=== PATIENT | male | born 1940 | race Caucasian/White ===

== ENCOUNTER 2024-09-08 11:41 | Emergency (ER) | payer MEDICARE, OTHER, SELFPAY ==
[2024-09-08 11:54] VITALS: BMI 25.3
[2024-09-08 11:55] VITALS: BP 143/68
[2024-09-08 12:30] LABS: % Basophils 0.4 % (0-2); % Eosinophils 1.3 % (0-6); % Immature Granulocytes 0.3 % (0-0.5); % Lymphocytes 15.6 % (20.5-51.1); % Monocytes 9.5 % (1.7-9.3); % Neutrophils 72.9 % (42.2-75.2); Absolute Eosinophils 0.1 10^3/uL (0-0.7); Absolute Lymphocytes 1.1 10^3/uL (1.2-3.4); Absolute Monocytes 0.7 10^3/uL (0.1-0.6); Absolute Neutrophils 5.1 10^3/uL (1.4-6.5); Hematocrit 40.3 % (39.0-52.0); Hemoglobin 13.4 g/dL (13.0-18.0); Mean Corp Hgb Conc. 33.3 g/dL (33.0-37.0); Mean Corpuscular Hgb 30.9 pg (27.0-31.0); Mean Corpuscular Volume 93.1 fL (80.0-94.0); Mean Platelet Volume 10.5 fL (7.4-10.4); Nucleated Red Blood Cells % 0 % (-); Platelet Count 203 10^3/uL (130-400); Red Blood Cell Count 4.33 10^6/uL (4.70-6.10); Red Cell Dist. Width 13.2 % (11.5-14.5); White Blood Cell Count 6.9 10^3/uL (4.8-10.8)
[2024-09-08 12:48] LABS: ALT (SGPT) 15 U/L (0-50); AST (SGOT) 21 U/L (17-59); Albumin 3.6 g/dl (3.5-5.0); Alkaline Phosphatase 59 U/L (38-126); Blood Urea Nitrogen 18 mg/dl (9-20); Carbon Dioxide 30 mmol/L (22-30); Chloride 107 mmol/L (98-107); Estimated Creatinine Clearance 64 ml/min; Glucose 85 mg/dl (70-99); Potassium 4.4 mmol/L (3.5-5.1); Sodium 141 mmol/L (135-145); Total Bilirubin 0.7 mg/dl (0.2-1.3); Total Protein 6.8 g/dl (6.3-8.2); eGFR > 60.00
[2024-09-08 13:00] VITALS: BP 141/61
--- NOTE | 2024-09-08 13:43 | ED.GENMED ---
History of Present Illness
General
Chief Complaint: Weakness
Source: spouse
Exam Limitations: dementia
Time Seen by Provider: 09/08/24 13:33
History of Present Illness
History of Present Illness:
83-year-old male presents with some increased weakness today along with some increased confusion. Normally knows how to ambulate and facilitate movement around the house but seem to have some issues earlier. Has trouble getting up normally with
his Parkinson's but usually once he is up he is able to ambulate. Patient has no specific complaints. No other obvious complaints per the . No cough fever vomiting unusual pain etc.
Past History
Past History
ED Past Medical History: Asthma and Other (Parkinson's/dementia)
ED Past Surgical History: Tonsilectomy, Urological and Other (Cataract surgery)
Phy Exam
Physical Exam
Physical Exam:
GENERAL: Alert and oriented in no apparent distress
EYE: Orbits normal.
NECK: Supple, no thyroid palpable
ENT: Pharynx without erythema
CARDIAC: Regular rate and rhythm without any obvious murmurs.
LUNGS: Clear breath sounds,normal
ABDOMEN: Soft, without focal tenderness or distention
NEUROLOGICAL: Alert and oriented x 1, grossly non-focal. Masked facies. Sequela of Parkinson's flat affect
SKIN: Warm and dry, no rash or lesion, no discoloration, skin intact.
MUSCULOSKELETAL: No edema,no deformity.Good color
PSYCH: Flat affect no thyroid palpable
Course
Orders/Labs/Results
Orders:
Orders
09/08/24 12:11
Complete Blood Count/With Diff Urgent
Comprehensive Metabolic Panel Urgent
09/08/24 13:15
CT Head W/o Iv Contrast Urgent
Comment:
Reason For Exam: fall 1.5 weeks ago, increase weakness/confusion
09/08/24 13:42
Case Management Consult ONCE
Case Management Consult: Discharge Planning
Physical Therapy Consult [Pt Eval And Treat] Urgent
Activity Level: Ambulate
09/08/24 15:04
Urinalysis Reflex To Culture Urgent
Date Specimen was Collected: 09/08/24
Time Specimen was Collected: 13:44
Urine Microscopic Reflex Cult Urgent
09/08/24 15:19
Case Management Consult ONCE
Case Management Consult: VN/Home Care
Abnormal Lab Results
09/08/24 09/08/24
12:11 15:04
RBC 4.33 L 10^6/uL
(4.70-6.10)
MPV 10.5 H fL
(7.4-10.4)
Absolute Lymphs (auto) 1.1 L 10^3/uL
(1.2-3.4)
Absolute Monos (auto) 0.7 H 10^3/uL
(0.1-0.6)
Lymphocytes % 15.6 L %
(20.5-51.1)
Monocytes % 9.5 H %
(1.7-9.3)
Urine Ketones 1+ A
(Negative)
Urine Bacteria (Reflex) Few A
(Negative)
Urine Albumin (Reflex) 1+ A
(Neg - Trace)
09/08/24 12:11
09/08/24 12:11
Vital Signs
Initial and Last Documented VS:
Initial Vital Signs
Temp Pulse Resp BP Pulse Ox
97.5 F 57 18 143/68 100
09/08/24 11:55 09/08/24 11:55 09/08/24 11:55 09/08/24 11:55 09/08/24 11:55
Last Documented Vital Signs
Temp Pulse Resp BP Pulse Ox
97.5 F 56 16 141/61 100
09/08/24 11:55 09/08/24 13:30 09/08/24 13:30 09/08/24 13:00 09/08/24 13:00
MDM/Problems Addressed
Differential Diagnosis Includes:
Patient with sequela of Parkinson's clinically. Nontoxic. Alert to name which is like it is near his baseline. Nonfocal. Etiologies of mental status change weakness would include electrolyte issue which is normal, infectious issue which is
unlikely however urine pending. No respiratory issues. Central neurologic issue also unlikely. CT scan pending. Will get case management and physical therapy also involved.
*Pulse Oximetry
Patient hypoxic: no (100%)
*Critical Care Note
Total Time (30-74mins, 75-104mins- exclusive of procedures): Not Applicable
Update Note
Update Note:
Patient is remained stable and nontoxic. No serious etiology found for his brief mental status changes this morning and some transient increased weakness. He did well with case management and physical therapy. Apparently ambulated well.
Patient's states she would prefer to have him at home and feels she can handle this at home. No indication for admission. Discharged to follow-up
ED Attending Note
-
Portions of this chart may have been created with voice recognition software.� Occasional wrong word or��sound alike� substitutions may have occurred due to the inherent limitations of voice recognition software.
Discharge Plan
Departure
Patient Disposition: Home (Routine Discharge)
Date of Disposition: 09/08/24
Time of Disposition: 15:39
Patient with high blood pressure during this ER visit?: Yes
Discharge Problem:
Transient mental status change/weakness, History of Parkinson's disease, Chronic sinusitis
Instructions: Generalized Weakness (DC), BLOOD PRESSURE
Referrals:
Sushila Hoskins CRNP [Family Provider, General] - Follow up in 2-3 days
Activity Restrictions/Additional Instructions:
Follow-up closely with your primary physician
Return immediately with any concerning symptoms including worsening mental status, increased weakness, fever, difficulty handling activities of daily living at home or any other concerning symptoms
Interventions
Interventions:
*Risk Screen - Suicide Last Done: 09/08/24 11:55
*General Assessment Last Done: 09/08/24 11:55
*Neglect/Abuse Screening Last Done: 09/08/24 12:00
*ED- Fall Risk Assessment Last Done: 09/08/24 12:00
ED- Pulmonary Assessment Last Done: 09/08/24 12:02
ED- Neurological Assessment Last Done: 09/08/24 12:02
ED- Cardiac Assessment Last Done: 09/08/24 12:02
Discharge Date and Time
Print Language: YI
[2024-09-08 14:29] VITALS: BP 143/68; PULSE 59; O2SAT 99
[2024-09-08 15:15] LABS: Urine Albumin 1+ (Neg - Trace); Urine Bilirubin Negative (Negative); Urine Character Clear (Clear); Urine Color Yellow; Urine Glucose Negative (Negative); Urine Ketone 1+ (Negative); Urine Leukocyte Negative (Negative); Urine Nitrite Negative (Negative); Urine Occult Blood Negative (Negative); Urine Urobilinogen Negative (Neg - 1+)
--- NOTE | 2024-09-08 15:26 | CM ---
ED CM consult for dispo planning. Pt and spouse newer residents at [facility]. Pt typically independent with use of wheeled walker for longer distances. No needing walker throughout apt and spouse now assisting with dressing.
Pt had dietary aide teacher one day weekly and attends a private pay respite group twice a week.
Pt currently attending OP therapy, clinic unknown.
Pt with dementia and Parkinson's, alert and oriented to person and place. Spouse notes poor short term memory.
PCP: Sushila Hoskins
Pharmacy: [facility]
Dispo: SNF recs by PT, spouse declining SNF at this time, she observed therapy session and feels she can handle pt at home, VN discussed, [facility] to [facility] per her request.
Spouse has made arrangements for friend to transport them home
[2024-09-08 15:29] LABS: Urine Bacteria Few (Negative); Urine Mucus Few; Urine Red Blood Cell 0-2 /HPF (0-2); Urine Squamous Cell 0-2 /LPF (Few); Urine White Cell 0-2 /HPF (0-5)
== END 2024-09-08 16:40 | disposition home or self-care (01) ==
LOC: EMR 11:41
PROVIDERS: Emergency Medicine; EMERGENCY PHYSICIAN Emergency Medicine; FAMILY PHYSICIAN Nurse Practitioner
DX: J32.9 Chronic sinusitis, unspecified (principal); G20.A1 Parkinson's disease without dyskinesia, without mention of fluctuations; F02.80 Dementia in other diseases classified elsewhere, unspecified severity, without behavioral disturbance, psychotic disturbance, mood disturbance, and anxiety; R41.82 Altered mental status, unspecified; R53.1 Weakness; R03.0 Elevated blood-pressure reading, without diagnosis of hypertension
CPT/HCPCS: 99285; 70450; 80053; 81003; 81015; 85025

== ENCOUNTER 2024-09-09 12:55 | Emergency (ER) | payer MEDICARE, OTHER, SELFPAY ==
[2024-09-09 13:12] VITALS: BP 155/66
[2024-09-09 13:13] VITALS: BP 155/66
[2024-09-09 13:24] VITALS: BMI 25.1
--- NOTE | 2024-09-09 13:29 | ED.GENMED ---
History of Present Illness
General
Chief Complaint: Change in Mental Status
Source: patient and spouse
Exam Limitations: dementia
Time Seen by Provider: 09/09/24 13:04
Nursing documentation reviewed up to this point in time: agreed with
History of Present Illness
History of Present Illness:
Patient is an 83-year-old male with history of dementia, Parkinson's who presents to the emergency department via EMS after unwitnessed fall last night. History taking somewhat limited with patient's history of dementia. I did speak with patient's
who states that he sustained an unwitnessed fall at home last night. She believes that he may have missed the bed as he was trying to sit and slid down striking his head on the headboard. She was not in the room at the time although quickly
walked in and found him on the ground. He was fully conscious at that time.
Patient's got up very early for doctor's appointment and contacted the patient's primary care who recommended that he be seen in the emergency department to rule out traumatic intracranial injuries. She called 911 from her doctors appointment
and had them transported here.
Patient himself has no current complaints. Patient's does state that he seems to be at his baseline mental status after the fall and this morning.
Patient is not on any blood thinners
Past History
Past History
ED Past Medical History: Asthma and Other (Parkinson's/dementia)
ED Past Surgical History: Tonsilectomy, Urological and Other (Cataract surgery)
Review of Systems
Review of Systems
Allergies reviewed?: Yes
All Other Systems: ROS reviewed and negative except as documented in HPI and ROS
Phy Exam
Physical Exam
Physical Exam:
GENERAL: No acute distress
HEENT: atraumatic, extraocular muscles intact, no signs of entrapment, dentition intact, no other obvious trauma
NECK: no midline tenderness, normal range of motion, no other obvious trauma
BACK: no midline tenderness, no other obvious trauma
CHEST: no tenderness, no flail segment, no subcutaneous emphysema, no other obvious trauma
LUNGS: clear to auscultation bilaterally
CARDIOVASCULAR: regular rate and rhythm
ABDOMEN: soft, non-tender, no masses, no other obvious trauma
PELVIS: stable, no obvious injury
EXTREMITIES: moving all extremities, distal pulses intact, no other obvious trauma
NEUROLOGIC: awake, alert x [address], not time, no focal deficits
Course
Orders/Labs/Results
Orders:
Orders
09/09/24 13:26
[address] Spine wo Contrast CT [CT Cervical Spine W/o Iv Contr] Urgent
Comment:
Reason For Exam: unwitnessed fall
09/09/24 13:27
CT Head W/o Iv Contrast Urgent
Comment:
Reason For Exam: unwitnessed fall
Vital Signs
Initial and Last Documented VS:
Initial Vital Signs
Pulse Resp BP Pulse Ox
54 8 155/66 100
09/09/24 13:12 09/09/24 13:12 09/09/24 13:12 09/09/24 13:12
Last Documented Vital Signs
Temp Pulse Resp BP Pulse Ox
98.3 F 52 11 155/66 100
09/09/24 13:13 09/09/24 13:15 09/09/24 13:15 09/09/24 13:13 09/09/24 13:15
MDM/Problems Addressed
Differential Diagnosis Includes:
Not limited to: Contusion, concussion, intracranial hemorrhage, progression of disease, etc.
MDM/Problems Addressed:
83 y.o old male presenting via EMS after unwitnessed fall last night with possible head strike. No current complaints, obvious injuries or notable change in mental status. Vitals stable. Patient arrives A&O x 2 which is his baseline. He has no focal
neuro deficits on exam nor any obvious signs of head or neck trauma. No signs of extremity injuries or chest/abdominal trauma. After speaking with patients - suspect fall likely mechanical in nature secondary to parkinsons and unsteady gait.
Will obtain CT imaging of head/cervical spine. Reviewed labwork/UA obtained yesterday while in emergency department without acute abnormalities - do not feel repeat labs/UA indicated today. Will consult case management for discharge planning given
concern for frequent falls.
Update: CT head/cervical spine without evidence of acute traumatic injuries. Case management had lengthy discussion with patient and regarding discharge planning, SNF placement, etc. Patients adamant that she will be taking him home with
her. She feels that he is currently safe at home although will consider placement in future. Patient has been set up with at home nursing care who will have first visit on . Given no traumatic injuries identified and patient remains at
baseline mental status with no current complaints - feel stable for discharge home w/ strict return precautions.
Chronic conditions affecting care:
Dementia, Parkinson's
Acute Exacerbation and/or Progression of Chronic Illness:
N/A
*Radiology
Radiology exam reviewed: preliminary read by ED provider and radiology read reviewed
*Pulse Oximetry
Patient hypoxic: no (100% on room air)
*EKG
Interpreted by ED Provider?: NA
*Head Doffer Interpretation
Rate: Head Doffer- N/A
*Critical Care Note
Total Time (30-74mins, 75-104mins- exclusive of procedures): Not Applicable
ED Attending Note
-
Portions of this chart may have been created with voice recognition software.� Occasional wrong word or��sound alike� substitutions may have occurred due to the inherent limitations of voice recognition software.
Discharge Plan
Departure
Patient Disposition: Home (Routine Discharge)
Date of Disposition: 09/09/24
Time of Disposition: 16:17
Patient with high blood pressure during this ER visit?: Yes
Covid-19: Not Applicable
Discharge Problem:
Unwitnessed fall
Instructions: Preventing falls - ED discharge instructions, BLOOD PRESSURE
Prescriptions:
No Action
quetiapine 25 mg Tablet
12.5 - 25 mg PO HS
carbidopa-levodopa 25-100 mg tablet extended release
1 tab PO TID
donepezil 10 mg Tablet
10 mg PO DAILY
clonazepam 0.5 mg Tablet
0.25 - 0.5 mg PO HS
omeprazole 20 mg capsule,delayed release(DR/EC)
20 mg PO DAILY
azelastine 137 mcg (0.1 %) [place],Non-Aerosol
0 spray INTRANASAL BID
ipratropium bromide 42 mcg (0.06 %) [place],Non-Aerosol
0 spray INTRANASAL QID
finasteride 5 mg Tablet
5 mg PO DAILY
budesonide-formoterol [Breyna] 160-4.5 mcg/actuation Hfa Aerosol Inhaler
2 puff INHALATION R BID
Referrals:
UNKNOWN,NO INTERVIEW [Family Provider]
Activity Restrictions/Additional Instructions:
RETURN TO THE EMERGENCY DEPARTMENT WITH ANY REPEAT FALLS OR HEAD STRIKE, CHANGES IN MENTAL STATUS, FEVERS, DIFFICULTIES AMBULATING, WORSENING OF CURRENT SYMPTOMS, OR ANY OTHER CONCERNS
- As discussed�your imaging of your head and cervical spine showed no acute traumatic injuries today.
-It is important that you stay well-hydrated. You should move around slowly to prevent further falls.
- Follow-up with primary care for further evaluation/management.
Monitor your symptoms closely and return to the emergency department with any acute worsening/new symptoms or any other safety concerns
Interventions
Interventions:
*Risk Screen - Suicide Last Done: 09/09/24 13:22
*General Assessment Last Done: 09/09/24 13:23
*Neglect/Abuse Screening Last Done: 09/09/24 13:22
*ED- Fall Risk Assessment Last Done: 09/09/24 13:32
*ED COVID-19 Vaccine History Last Done: 09/09/24 13:22
*Nursing Disposition Last Done: 09/09/24 16:55
ED- Pulmonary Assessment Last Done: 09/09/24 13:36
ED- Neurological Assessment Last Done: 09/09/24 13:33
ED- Cardiac Assessment Last Done: 09/09/24 13:36
Discharge Date and Time
Discharge Date/Time: 09/09/24 16:55
Print Language: ALBANIAN
--- NOTE | 2024-09-09 14:42 | PHANOTE ---
09/09/2024, pt. obtunded; attempted to call spouse but was unsuccessful.
--- NOTE | 2024-09-09 15:28 | CM ---
CM met with pt's at bedside. Pt was seen in ED yesterday, [facility] arranged but have not started care yet.
SNF recs yesterday which pt's declined, continues to decline SNF placement today.
Spoke to Ebonie at [facility], they would have bed tomorrow. Private pay cost would be $545.00 a day. Could also offer 7 day respite stay with PT, also $545.00 a day.
We encouraged immediate increase in private duty HOSPITAL ACCOUNT MANAGER. We also encouraged her consider starting the LTC process.
We provided her [facility] contact information, [place] [phone]. Also provided her with Admissions Office number to discuss Memory Care, [place], .
Informed her [facility] will start services on 09/11.
ED KIRBY Lindsey updated.
== END 2024-09-09 16:55 | disposition home or self-care (01) ==
LOC: EMR 12:55
PROVIDERS: EMERGENCY PHYSICIAN Emergency Medicine
DX: S09.90XA Unspecified injury of head, initial encounter (principal); W19.XXXA Unspecified fall, initial encounter; F02.80 Dementia in other diseases classified elsewhere, unspecified severity, without behavioral disturbance, psychotic disturbance, mood disturbance, and anxiety; G20.A1 Parkinson's disease without dyskinesia, without mention of fluctuations; R03.0 Elevated blood-pressure reading, without diagnosis of hypertension
CPT/HCPCS: 99285; 70450; 72125

== ENCOUNTER 2024-10-12 12:32 | Inpatient (IN) | payer MEDICARE, OTHER, SELFPAY ==
[2024-10-10] VITALS (12 sets, daily range): BP systolic 130–158; BP diastolic 53–69; BMI 25.0
[2024-10-10 14:08] LABS: Hematocrit 45.2 % (39.0-52.0); Hemoglobin 15.2 g/dL (13.0-18.0); Mean Corp Hgb Conc. 33.6 g/dL (33.0-37.0); Mean Corpuscular Volume 91.7 fL (80.0-94.0); Nucleated Red Blood Cells % 0 % (-); Platelet Count 193 10^3/uL (130-400); Red Cell Dist. Width 13.3 % (11.5-14.5)
[2024-10-10] MEDS: NSS 500 IV (15:01)
--- NOTE | 2024-10-10 15:08 | ED.GENMED ---
History of Present Illness
General
Chief Complaint: Change in Mental Status
Source: spouse
Exam Limitations: altered mental status and dementia
Time Seen by Provider: 10/10/24 14:08
Nursing documentation reviewed up to this point in time: agreed with
History of Present Illness
History of Present Illness:
Patient is an 83-year-old male with history of dementia, Parkinson's who presents to the emergency department with due to change in mental status. Patients states that over the past few days he has seemed generally weak. She states that
he seems much quieter and is not eating/drinking as he typically does. Patient's states that he recently began using a walker to assist with ambulation although over the past few days he has had increased difficulty even with this. Patient is
not expressing any pain. There is no history of recent fevers
There is no history of recent trauma or falls. Patient is not on any blood thinners.
Patient lives in independent living with his .
Past History
Past History
ED Past Medical History: Asthma and Other (Parkinson's/dementia)
ED Past Surgical History: Tonsilectomy, Urological and Other (Cataract surgery)
Review of Systems
Review of Systems
Allergies reviewed?: Yes
All Other Systems: ROS reviewed and negative except as documented in HPI and ROS
Phy Exam
Physical Exam
Physical Exam:
Vitals: Patient's vital signs are stable
General: Patient is chronically ill-appearing.
Skin: Warm and dry, no rashes or lesions
Head: Normocephalic, atraumatic
Eyes: Sclera nonicteric. No nystagmus.
Throat: Protecting airway
Neck: Normal ROM, no cervical spine tenderness, no meningismus
Cardiac: Regular rate and rhythm, no murmurs.
Pulm: Normal respiratory effort, no wheezes, rales, rhonchi heard on exam
.
Abdomen: Abdomen soft and nontender
Extremities: No evidence of cyanosis or edema
Neuro: Alert. Responds to verbal stimuli. Remainder of neurologic exam limited secondary to dementia.
Psychiatric: Normal affect.
Course
Orders/Labs/Results
Orders:
Orders
10/10/24 Breakfast
Regular
At Your Request: Non-Participating
10/10/24 13:58
Complete Blood Count/With Diff Urgent
Lactic Acid Urgent
10/10/24 14:51
Straight cath- Treatment ONCE
0.9% Sodium Chloride 500 ml [Nss] 500 ml IV BOLUS
10/10/24 14:52
CT Head W/o Iv Contrast Urgent
Comment:
Reason For Exam: AMS
10/10/24 15:33
Comprehensive Metabolic Panel Urgent
10/10/24 15:43
Urinalysis Reflex To Culture Urgent
Date Specimen was Collected: 10/10/24
Time Specimen was Collected: 14:53
Urine Microscopic Reflex Cult Urgent
10/10/24 17:10
CR Chest - 2 Views Urgent
Comment:
Reason For Exam: cough
10/10/24 18:44
Electrocardiogram (*1) Urgent
Reason for Study: Fatigue / Weakness
EKG- Treatment ONCE
10/10/24 19:00
COVID-19 Antigen Urgent
Source: Nasal Swab
Influenza A+B Rapid Molecular Urgent
JUAN MIGUEL Source: Nasal Swab
Specimen Description:
10/10/24 21:00
Admit/Transfer Patient As Directed
Co-Sign Provider:
Level of Care: Observation services
Assign to:: Telemetry
Physician / Group: vincent
Diagnosis: metabolic encephalopathy
Reason for Telemetry: Arrhythmia
Date to Stop Telemetry: 10/13/24
Time to Stop Telemetry: 11:00
Reason for Hospitalization: metabolic encephalopathy
ambulatory dysfunction
PRN Pain Medication Management As Directed
May give lesser potent ordered pain med per pt: Yes
preference::
Protocol:: Medication orders for pain may be administered in a
manner that supports deferring to patient preference
when the pt is:
- Requesting an ordered lesser potent pain medication.
Least to most potent pain medications are defined
as: acetaminophen < NSAID < tramadol < opioids
(morphine, oxycodone, hydromorphone).
- Requesting a lesser dose of the same medication IF
ORDERED.
- Requesting a less intrusive route of administration
if both routes are prescribed by the provider (PO <
IV).
10/10/24 21:01
Code Status As Directed
Resuscitation Status: Full Code
10/10/24 22:00
Dextrose 5%/Lactringers 1000ML [D5lr] 1,000 ml IV 80 mls/hr
10/10/24 22:38
Acetaminophen [Tylenol/Feverall] 650 mg RECTAL Q4HPRN PRN
Albuterol [ProAIR HFA INHALER] 2 puff INH R QID
Bisacodyl [Dulcolax] 10 mg RECTAL [id number] PRN
Carbidopa/Levodopa Cr [Sinemet Cr 25-100 (Extended Release)] 1 tablet PO TID
Docusate W/Senna [Senokot-S] 1 tablet PO BIDPRN PRN
Polyethylene Glycol Powder [Miralax] 17 grams PO DAILYPRN PRN
10/10/24 22:38
Case Management Consult ONCE
Case Management Consult: Discharge Planning
Activity As Directed
Activity Level: As Tolerated
Vital Signs As Directed
Frequency: Per unit guidelines
Ot Eval And Treat Routine
Pt Eval And Treat Routine
Activity Level: As Tolerated
DX Deep Vein Thrombosis Video Routine
10/11/24 08:00
Budesonide/Formoterol 160/4.5 [Symbicort 160/4.5 Mcg Inhaler] 2 puff INH R BID
Cetirizine HCl [Zyrtec] 10 mg PO DAILY
Duloxetine Delayed Release [Cymbalta Delayed Release] 20 mg PO DAILY
FLUTICASONE PROPIONATE 110 mcg [Flovent 110 Mcg Inhaler] 1 puff INH R BID
Finasteride [Proscar] 5 mg PO DAILY
Pantoprazole [Protonix] 40 mg PO DAILY
10/11/24 18:00
Enoxaparin Sodium [Lovenox] 40 mg SC QPM
10/13/24 11:00
DC Protocol for Telemetry ONCE
Abnormal Lab Results
10/10/24 10/10/24 10/10/24
13:58 15:33 15:43
MPV 10.5 H fL
(7.4-10.4)
Abs Immat Gran (auto) 0.1 H 10^3/uL
(0-0.05)
Absolute Neuts (auto) 7.9 H 10^3/uL
(1.4-6.5)
Absolute Monos (auto) 1.3 H 10^3/uL
(0.1-0.6)
Lymphocytes % 13.3 L %
(20.5-51.1)
Monocytes % 12.2 H %
(1.7-9.3)
Carbon Dioxide 31 H mmol/L
(22-30)
BUN 21 H mg/dl
(9-20)
Glucose 130 H mg/dl
(70-99)
Total Bilirubin 1.5 H mg/dl
(0.2-1.3)
Urine Ketones 1+ A
(Negative)
Ur Occult Blood Reflex 1+ A
(Negative)
Urine Bacteria (Reflex) Few A
(Negative)
Urine Glucose 1+ A
(Negative)
Urine Albumin (Reflex) 2+ A
(Neg - Trace)
10/10/24 13:58
10/10/24 15:33
Vital Signs
Initial and Last Documented VS:
Initial Vital Signs
Temp Pulse Resp BP Pulse Ox
99.9 F 56 20 156/66 97
10/10/24 13:46 10/10/24 13:46 10/10/24 13:46 10/10/24 13:46 10/10/24 13:46
Last Documented Vital Signs
Temp Pulse Resp BP Pulse Ox
98.0 F 60 17 185/99 100
10/11/24 08:48 10/11/24 08:48 10/11/24 08:48 10/11/24 08:48 10/11/24 08:48
MDM/Problems Addressed
Differential Diagnosis Includes:
Not limited to: Progression of disease, acute dehydration, viral illness, electrolyte abnormality, UTI, intracranial hemorrhage, etc.
MDM/Problems Addressed:
83-year-old male presenting with generalized weakness and change in mental status over the past 2 days reported by . No known fevers or other infectious symptoms. No recent trauma or head injury. Vitals and physical exam as above.
Patient alert and moving all extremities. He responds to verbal stimuli however otherwise neurologic exam very limited. Benign abdomen. Cardio/pulmonary assessment unremarkable. Differential includes progression of Parkinson/dementia, acute
dehydration, infection, etc.
ED plan: Check labs, UA, head CT and chest x-ray.
Update: Labs without clinically significant abnormalities. UA without evidence of infection. Head CT without acute findings. Chest x-ray shows no evidence of pneumonia.
Ultimately�workup in ED negative. Unclear how much of an acute change this is from patient's baseline. However�patient lives in independent living with his , who is having difficulty caring for him given weakness and ambulatory dysfunction.
Patient will require admission for further workup and possible PT/CM for placement for increased care. Patient excepted to hospitalist service in stable condition. Discussed plan with who is aware.
Chronic conditions affecting care:
Dementia, Parkinson's
Acute Exacerbation and/or Progression of Chronic Illness:
N/A
*Radiology
Radiology exam reviewed: preliminary read by ED provider (Head CT reviewed by me-no acute abnormality) and radiology read reviewed
*Pulse Oximetry
SaO2: 97
Oxygen Mode of Delivery: Room air
Patient hypoxic: no
*EKG
Interpreted by ED Provider?: Yes
EKG Intrepretation Date: 10/10/24
Interpretation: abnormal
Comparison EKG: no comparison EKG present
Heart Rate: 54
Rate: bradycardiac
Rhythm: sinus
[place]: normal axis
Interval: normal QT interval
Ischemia: non-specific ST changes
*Motorcycle Builder Interpretation
Rate: bradycardiac
Interpretation: abnormal
Heart Rate: 54
Rhythm: sinus
*Critical Care Note
Total Time (30-74mins, 75-104mins- exclusive of procedures): Not Applicable
Patient Management
Discussion with other providers: Hospitalist
Escalation/DeEscalation of care consider admission/obs:
Admitted for generalized weakness, ambulatory dysfunction for further evaluation and possible PT/CM consult for placement
ED Attending Note
-
Portions of this chart may have been created with voice recognition software.� Occasional wrong word or��sound alike� substitutions may have occurred due to the inherent limitations of voice recognition software.
Discharge Plan
Departure
Patient Disposition: Admit
Date of Disposition: 10/10/24
Time of Disposition: 19:36
Presentation/result/management discussed w/ accepting MD/DO: Hospitalist
Discharge Problem:
Change in mental status, Ambulatory dysfunction
Interventions
Interventions:
*Risk Screen - Suicide Last Done: 10/10/24 22:45
*General Assessment Last Done: 10/10/24 13:51
*Neglect/Abuse Screening Last Done: 10/10/24 13:46
*ED- Fall Risk Assessment Last Done: 10/10/24 13:51
*ED COVID-19 Vaccine History Last Done: 10/10/24 22:45
*Nursing Disposition Last Done: 10/10/24 22:27
ED- Pulmonary Assessment Last Done: 10/10/24 14:34
ED- Neurological Assessment Last Done: 10/10/24 14:34
ED- Cardiac Assessment Last Done: 10/10/24 14:34
Discharge Date and Time
Discharge Date/Time: 10/10/24 22:27
[2024-10-10 16:00] LABS: ALT (SGPT) 27 U/L (0-50); AST (SGOT) 33 U/L (17-59); Albumin 3.9 g/dl (3.5-5.0); Alkaline Phosphatase 62 U/L (38-126); Blood Urea Nitrogen 21 mg/dl (9-20); Calcium 9.1 mg/dl (8.4-10.2); Carbon Dioxide 31 mmol/L (22-30); Chloride 106 mmol/L (98-107); Glucose 130 mg/dl (70-99); Potassium 4.0 mmol/L (3.5-5.1); Sodium 141 mmol/L (135-145); Total Protein 7.4 g/dl (6.3-8.2); eGFR > 60.00
[2024-10-10 16:00] LABS: Urine Character Clear (Clear)
[2024-10-10 16:20] LABS: Urine Red Blood Cell 0-2 /HPF (0-2)
[2024-10-10 19:22] LABS: COVID-19 Antigen Negative (Negative)
--- NOTE | 2024-10-10 20:38 | HPS.HSE ---
Family Physician
-
Family Physician: INTERVIEWE UNKNOWN - PT NOT
Chief Complaint
-
confusion
History of Present Illness
-year-old male with history of dementia, Parkinson's who presents to the emergency department with due to change in mental status. Patients states that over the past few days he has seemed generally weak and is utilizing a walker for
ambulation. She states that he seems much quieter and is not eating/drinking as he typically does. ROS is limited due to mental status.
admitting for further managment.
Medical History
Past Medical History
Past Medical History: Reports Other
Additional Past Medical History:
Parkinson disease
dementia
GERD
BPH
anxiety
skin cancer
reactive airway disease
Past Surgical History: Reports None
Social History
Unable to obtain full social history at this time due to: Dementia
Family History
Family History: Not pertinent
Allergies / Home Medications
Allergies reflects when Allergies were last updated in [facility].
Home Medications with original date entered in [facility]
Allergy/Medication List:
Allergies
Allergy/AdvReac Type Severity Reaction Status Date / Time
levofloxacin Allergy Unknown Unknown Verified 10/10/24 13:46
memantine Allergy Unknown Unknown Verified 10/10/24 13:46
Home Medications
azelastine 137 mcg (0.1 %) nasal spray 1 spray intranasal BID 09/09/24
budesonide-formoterol HFA 160 mcg-4.5 mcg/actuation aerosol inhaler (Breyna) 2 puff inhalation R BID 09/09/24
carbidopa ER 25 mg-levodopa 100 mg tablet,extended release 1 tab PO TID 09/09/24
donepezil 10 mg tablet 10 mg PO DAILY 09/09/24
finasteride 5 mg tablet 5 mg PO DAILY 09/09/24
omeprazole 20 mg capsule,delayed release 20 mg PO DAILY 09/09/24
albuterol sulfate 90 mcg/actuation aerosol inhaler 2 puff inhalation QID 10/10/24
cetirizine 10 mg tablet 10 mg PO DAILY 10/10/24
ciclesonide 80 mcg/actuation aerosol inhaler (Alvesco) 2 puff inhalation BID 10/10/24
duloxetine 20 mg capsule,delayed release 20 mg PO DAILY 10/10/24
triamcinolone acetonide 55 mcg nasal spray aerosol (Nasacort Allergy) 1 spray intranasal DAILY 10/10/24
Review of Systems
-
Unable to obtain full review of systems at this time due to: Dementia
Physical Exam
Vital Signs
Vital Signs
Temp Pulse Resp BP Pulse Ox
99.9 F 56 14 136/64 99
10/10/24 13:46 10/10/24 20:18 10/10/24 19:15 10/10/24 19:06 10/10/24 19:45
Physical Exam
General: Well Developed, Well Nourished and No Apparent Distress
HEENT: NormoCephalic, Moist mucous membranes and Atraumatic
Respiratory: Clear
Cardiac: S1/S2 and Regular Rhythm; No Murmur or Rub
GI: Soft, Non Tender, Non Distended and Normal Bowel Sounds; No Organomegaly
Rectal: Deferred by Provider
Musculoskeletal: No Clubbing, No Cyanosis and No Edema
Skin: No Rash
Neuro: Nonfocal/grossly intact
Psych: Confused
Laboratory Results
-
10/10/24 13:58
10/10/24 15:33
Laboratory Results
Lactic Acid 1.9 mmol/L (0.7-2.0) 10/10/24 13:58
Total Bilirubin 1.5 mg/dl (0.2-1.3) H 10/10/24 15:33
AST 33 U/L (17-59) 10/10/24 15:33
ALT 27 U/L (0-50) 10/10/24 15:33
Alkaline Phosphatase 62 U/L (38-126) 10/10/24 15:33
Data Reviewed
-
CT Scan: Report Reviewed by me
Lab Data: Labs Reviewed by me
Impression/Plan
-
# Ambulatory dysfunction/generalized weakness/encephalopathy likely progression of dementia/Parkinson disease
#hxt of Lewy dementia
- COVID-negative
- UA negative
- CT head with impression of No CT evidence for acute intracranial hemorrhage or transcortical infarct.
2. 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
3. SEVERE WHITE MATTER LEUKOARAIOSIS in the frontal lobes and moderate white matter leukoaraiosis in the parietal lobes.
4. Severe bilateral frontal sinusitis.
5. Severe hyperostosis of the paiz of the maxillary and sphenoid sinuses consistent with chronic sinusitis.
6. Moderate bilateral hyperostosis frontalis interna.
-chest x ray with No radiographic evidence for pneumonia or acute pulmonary edema. Mild to moderate elevation of the right hemidiaphragm. Chronic granulomatous disease infection in the left lung.
-PT/OT consulted
-CM consulted for dispo planning
- Aricept held due to bradycardia
- Carbidopa levodopa continue
- Duloxetine continued
# Bradycardia likely from aricept
- EKG with sinus bradycardia
- Heart rate in the 40s to 50s
- Continue to monitor patient in telemetry
# History of airway disease
- Nebs from home continued
# BPH
- Finasteride continued
# GERD
- PPI continued
# DVT prophylaxis
- Lovenox
# CODE STATUS
- Full code
--- NOTE | 2024-10-10 21:16 | W.PN.UPDATE ---
Update Note
Progress Note Update
Patient seen in conjunction with CERTIFIED SOL[employer]E FACILITY OPERATOR, agree with findings and physical. I concur with assessment and plan listed otherwise.
Briefly, this is a 83-year-old male with past medical history similar for Parkinson's disease, BPH, GERD, dementia with Lewy body, presenting to the emergency department with ambulatory dysfunction and generalized weakness that is worsening over the
last few days. Unclear if there is significant decline in mental status as spouse unable to describe baseline mental status clearly. Patient has no focal source of infection. Has been no fevers or chills. Has been no cough. Denies any trauma.
Denies falls. Denies any urinary symptoms. No sick contacts and no recent travel. No recent medication changes.
In the ED the patient, blood pressure was 136/60 with a pulse of 56 and was satting in 9% on room air. Temp was Tmax 99.9. ECG with sinus bradycardia at a rate of 54.
CT of the head shows no acute intracranial process, severe sinusitis noted.
CBC was completely unremarkable. Electrolytes was also unremarkable with normal BUN and creatinine. UA was negative.
Chest x-ray shows no acute infiltrates. COVID test was negative, influenza negative.
Patient appears to be having progressive functional decline seems to be evident the last few days without any focal cortical deficits, infection or trauma. Labs are completely unremarkable. CT of the head shows no acute intracranial process and
there was some evidence of sinusitis on the CT. Chest x-ray was clear. Patient is being referred for admission for of possible alteration in mental status and ambulatory dysfunction. Picture c/w progressive dementia. Per records, PMD already
broached hospice with family but spouse did not want to start yet
- admit to telemetry
- gentle hydration overnight
- PT evaluation
- case management consultation, possible hospice.
Sinus pablito - HD stable. No indication for acute intervention
- hold aricept for now
Continue other medications per home regimen
DVT PPX - lovneox sq
Code status - Full Code
--- NOTE | 2024-10-10 22:45 | PTCARENOTE ---
Pt arrived to room 418-02. Pt transferred from stretcher to bed. Pt AAO-self, pt minimally verbal, VSS. Pt oriented to room, call amaya placed within reach. Bed alarm in place.
[2024-10-10] MEDS: D5LR 1000 IV (23:07)
[2024-10-10] MEDS: SINEMET CR 25-100 (EXTENDED RELEASE) PO (23:45)
[2024-10-11 03:46] VITALS: BP 140/63
[2024-10-11] MEDS: SYMBICORT 160/4.5 MCG INHALER INH (08:00)
[2024-10-11 08:48] VITALS: BP 185/99
[2024-10-11] MEDS: PROSCAR 5 MG PO (09:02)
[2024-10-11] MEDS: CYMBALTA DELAYED RELEASE 20 MG PO (09:02)
[2024-10-11] MEDS: ZYRTEC 10 MG PO (09:02)
[2024-10-11] MEDS: PROTONIX 40 MG PO (09:02)
[2024-10-11] MEDS: SINEMET CR 25-100 (EXTENDED RELEASE) 1 TABLET PO ×2 (09:03→17:06)
--- NOTE | 2024-10-11 09:25 | W.PN.HOSP.TC ---
Today's Communication/Plan
-
see a/p
Assessment / Plan
Assessment / Plan
Physical Exam
General: no acute distress, appears comfortable at this time.
HEENT: NormoCephalic, Moist mucous membranes and Atraumatic Hard of hearing
Respiratory: Clear
Cardiac: S1/S2 and Regular Rhythm; No Murmur or Rub
GI: Soft, Non Tender, Non Distended and Normal Bowel Sounds; No Organomegaly
Musculoskeletal: No Clubbing, No Cyanosis and No Edema
Skin: No Rash
Neuro: Awake Alert Conversant
Psych: Calm
83M with history Lewy Body Dementia p/w due to concerns AMS progressive weakness ambulatory dysfunction past few days.
# Ambulatory dysfunction/generalized weakness/encephalopathy likely progression Lewy Body Dementia
- COVID-negative
- UA negative
- CT head with report No CT evidence for acute intracranial hemorrhage or transcortical infarct.
2. Moderate bilateral temporal lobe volume loss consistent with a chronic neurodegenerative disease (suggestive ALZHEIMER'S DEMENTIA).
3. SEVERE WHITE MATTER LEUKOARAIOSIS in the frontal lobes and moderate white matter leukoaraiosis in the parietal lobes.
4. Severe bilateral frontal sinusitis.
5. Severe hyperostosis of the paiz of the maxillary and sphenoid sinuses consistent with chronic sinusitis.
6. Moderate bilateral hyperostosis frontalis interna.
-chest x ray with No radiographic evidence for pneumonia or acute pulmonary edema. Mild to moderate elevation of the right hemidiaphragm. Chronic granulomatous disease infection in the left lung (discussed with Pulm, no further work up/treatment
required inpt, possible benefit outpt follow up).
-PT/OT consult appreciated SNF rehab
-CM consult appreciated
- Aricept held due to bradycardia
- Carbidopa levodopa continue
- Duloxetine continued
-PT/OT appreciated SNF rehab
-speech eval appreciated pureed diet
-cont IVF support pending improvement in oral intake
# Bradycardia possibly from aricept
- EKG with sinus bradycardia
- Heart rate in the 40s to 50s
- Continue to monitor patient in telemetry
# History reactive airway disease
- stable respiratory status on room air
- cont symbicort, prn albuterol
# BPH
- Finasteride continued
# GERD
- PPI continued
# DVT prophylaxis
- Lovenox
# CODE STATUS
- Full code
Discussed with patient and patient's Kristina
I spent a total of 50 minutes with the patient or on the floor. More than 50% of this time involved counseling and coordination of care.
Anticipated Discharge: 24 - 48 hours
Subjective/Interval History
-
Date of Service: October 11, 2024
No acute distress, sitting up comfortably in chair. Awake alert conversant. Limited conversation d/t hard of hearing. Kristina present during evaluation.
Objective Data
-
Vital Signs:
Vital Signs
Temp Pulse Resp BP Pulse Ox
98.0 F 60 17 185/99 100
10/11/24 08:48 10/11/24 08:48 10/11/24 08:48 10/11/24 08:48 10/11/24 08:48
[2024-10-11 11:06] VITALS: BMI 25.0
[2024-10-11] MEDS: D5LR 1000 IV (12:22)
[2024-10-11 15:00] VITALS: BP 144/75
--- NOTE | 2024-10-11 15:36 | CM ---
manager membership reviewed patient's chart and patient was admitted under OBS, JENKINS letter provided and signed by spouse, patient with dementia. Patient has a history of Parkinson's, patient lives with spouse and [address], is independent
with adl's and ambulating, recently patient has been using a walker, disease case manager spoke with spouse and she is interested in skilled placement, will need to review patient for possible WAIVER for skilled placement.
Pharmacy: [facility]
Plan; Await PT/OT evaluations.
--- NOTE | 2024-10-11 16:33 | PTOTSP ---
Speech Therapy Evaluation:
Pt with acute on chronic risk factors of dysphagia (Dementia, Parkinson's, GERD, altered mental status). Pt demonstrated mild oral impairments. No overt s/sx of aspiration across trials. Risk of developing aspiration related pulmonary complication
increased given poor oral hygiene, dependence for feeding/oral care (temporary), and hx of gastrointestinal disease. CXR without evidence for pneumonia, WBC WNL, and pt without dysphagia hx. Suspect diet advancement as mentation improves.
Recommend:
1. Continue puree and thin liquids
2. Medds crushed in puree
3. 1:1 assistance and supervision
4. Strict aspiration precautions, General reflux precautions
5. NURSING ADMINISTRATOR to follow to monitor tolerance of diet and assess candidacy for diet advancement
[2024-10-11] MEDS: LOVENOX 40 MG SC (17:58)
[2024-10-11] MEDS: SYMBICORT 160/4.5 MCG INHALER 2 PUFF INH (18:16)
[2024-10-11 19:54] VITALS: BP 147/70
[2024-10-11] MEDS: SINEMET CR 25-100 (EXTENDED RELEASE) PO ×2 (22:02→22:03)
[2024-10-11 23:30] VITALS: BP 146/64
[2024-10-12 03:35] VITALS: BP 102/72
[2024-10-12 06:19] LABS: Hematocrit 38.9 % (39.0-52.0); Hemoglobin 13.1 g/dL (13.0-18.0); Mean Corp Hgb Conc. 33.7 g/dL (33.0-37.0); Mean Corpuscular Volume 91.3 fL (80.0-94.0); Platelet Count 173 10^3/uL (130-400); Red Cell Dist. Width 13.2 % (11.5-14.5)
[2024-10-12 06:52] LABS: Blood Urea Nitrogen 23 mg/dl (9-20); Calcium 8.8 mg/dl (8.4-10.2); Carbon Dioxide 30 mmol/L (22-30); Chloride 107 mmol/L (98-107); Estimated Creatinine Clearance 83 ml/min; Glucose 109 mg/dl (70-99); Magnesium 2.1 mg/dl (1.6-2.3); Potassium 3.6 mmol/L (3.5-5.1); Sodium 140 mmol/L (135-145); eGFR > 60.00
[2024-10-12 07:00] VITALS: BP 120/74; BP 140/65; PULSE 54; PULSE 55
--- NOTE | 2024-10-12 07:24 | W.PN.HOSP.TC ---
Today's Communication/Plan
-
IVF support
PT/OT
Neuro eval
Ongoing goals of care discussion
Assessment / Plan
Assessment / Plan
Physical Exam
General: no acute distress, appears comfortable at this time.
HEENT: NormoCephalic, Moist mucous membranes and Atraumatic Hard of hearing
Respiratory: Clear
Cardiac: S1/S2 and Regular Rhythm; No Murmur or Rub
GI: Soft, Non Tender, Non Distended and Normal Bowel Sounds; No Organomegaly
Musculoskeletal: No Clubbing, No Cyanosis and No Edema
Skin: No Rash
Neuro: Awake Alert Conversant
Psych: Calm
83M with history Lewy Body Dementia p/w due to concerns AMS progressive weakness ambulatory dysfunction past few days.
# Ambulatory dysfunction/generalized weakness/encephalopathy likely progression Lewy Body Dementia
- COVID-negative
- UA negative
- CT head with report No CT evidence for acute intracranial hemorrhage or transcortical infarct.
2. Moderate bilateral temporal lobe volume loss consistent with a chronic neurodegenerative disease (suggestive ALZHEIMER'S DEMENTIA).
3. SEVERE WHITE MATTER LEUKOARAIOSIS in the frontal lobes and moderate white matter leukoaraiosis in the parietal lobes.
4. Severe bilateral frontal sinusitis.
5. Severe hyperostosis of the paiz of the maxillary and sphenoid sinuses consistent with chronic sinusitis.
6. Moderate bilateral hyperostosis frontalis interna.
-chest x ray with No radiographic evidence for pneumonia or acute pulmonary edema. Mild to moderate elevation of the right hemidiaphragm. Chronic granulomatous disease infection in the left lung (discussed with Pulm, no further work up/treatment
required inpt, possible benefit outpt follow up).
-PT/OT consult appreciated SNF rehab
-CM consult appreciated
- Aricept held due to bradycardia
- Carbidopa levodopa continue
- Duloxetine continued
-PT/OT appreciated SNF rehab
-speech eval appreciated pureed diet
-cont IVF support pending improvement in oral intake
-Neuro eval appreciated
# Bradycardia possibly from aricept
- EKG with sinus bradycardia
- Heart rate in the 40s to 50s
- Continue to monitor patient in telemetry
# History reactive airway disease
- stable respiratory status on room air
- cont symbicort, prn albuterol
# BPH
- Finasteride continued
# GERD
- PPI continued
# DVT prophylaxis
- Lovenox
# CODE STATUS
- Full code
Discussed with patient and patient's Kristina
I spent a total of 45 minutes with the patient or on the floor. More than 50% of this time involved counseling and coordination of care.
Anticipated Discharge: 24 - 48 hours
Subjective/Interval History
-
Date of Service: October 12, 2024
Awake alert but confused, sometimes tangential speech, some limitations interactions possibly d/t hard of hearing.
Objective Data
-
Labs:
Laboratory Results
10/12/24
05:40
WBC 7.2
Hgb 13.1
Hct 38.9 L
Plt Count 173
Sodium 140
Potassium 3.6
Chloride 107
Carbon Dioxide 30
BUN 23 H
Creatinine 0.7
Glucose 109 H
Calcium 8.8
Vital Signs:
Vital Signs
Temp Pulse Resp BP Pulse Ox
97.8 F 47 16 102/72 98
10/12/24 03:35 10/12/24 03:35 10/12/24 03:35 10/12/24 03:35 10/12/24 03:35
[2024-10-12] MEDS: SYMBICORT 160/4.5 MCG INHALER INH (07:53)
[2024-10-12] MEDS: CYMBALTA DELAYED RELEASE 20 MG PO (09:35)
[2024-10-12] MEDS: SINEMET CR 25-100 (EXTENDED RELEASE) 1 TABLET PO ×2 (09:36→18:03)
[2024-10-12] MEDS: ZYRTEC 10 MG PO (09:58)
[2024-10-12] MEDS: PROSCAR 5 MG PO (09:59)
[2024-10-12] MEDS: PROTONIX 40 MG PO (09:59)
[2024-10-12] MEDS: D5LR 1000 IV (10:10)
[2024-10-12 11:00] VITALS: BP 116/50
[2024-10-12 15:00] VITALS: BP 136/56
[2024-10-12] MEDS: LOVENOX 40 MG SC (18:03)
[2024-10-12] MEDS: SYMBICORT 160/4.5 MCG INHALER 2 PUFF INH (18:24)
[2024-10-12 19:52] VITALS: BP 135/57; BP 152/63; PULSE 57; PULSE 59
--- NOTE | 2024-10-12 20:46 | CON.NEURO ---
Neuro Assessment/Plan
Assessment
Lewy Body dementia. his disease course sounds aggressive even by the standards of Lewy Body. His prognosis is very poor.
His brought in advanced directives today, saying that he would want hospice in this situation and that she is the POA, and she is thinking about whether they want to do it back at [facility] or somewhere else. But they have three children in
different time zones who will bully her about it. Reassured her that we will follow the patient's wishes, and she is doing the right thing, emotional support provided.
Consultation
Order
Date of Consultation: 10/12/24
Requesting Provider: Nimesh Mendieta
Reason for Consult: Dementia with Lewy Bodies, altered mental status
Subjective/Objective
Subjective Data
Date of Service: October 12, 2024
83 year old man with altered mental status. Patients states that over the past few days he has seemed generally weak. She states that he seems much quieter and is not eating/drinking as he typically does. Patient's states that he recently
began using a walker to assist with ambulation although over the past few days he has had increased difficulty even with this. Patient is not expressing any pain. There is no history of recent fevers
There is no history of recent trauma or falls. Patient is not on any blood thinners.
Patient lives with Perez Perez
spoke with over the phone. He was initially diagnosed with Parkinson's disease 2 years ago, and symptoms progressed rapidly. 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 She has been killing herself trying to
care for him and can't do it anymore.
Objective Data
Vital Signs
Temp Pulse Resp BP Pulse Ox
36.8 C 58 18 136/56 98
10/12/24 19:52 10/12/24 18:27 10/12/24 19:52 10/12/24 15:00 10/12/24 19:52
Lab Results
10/12/24 05:40
10/12/24 05:40
Sodium 140 mmol/L (135-145) 10/12/24 05:40
Potassium 3.6 mmol/L (3.5-5.1) 10/12/24 05:40
BUN 23 mg/dl (9-20) H 10/12/24 05:40
Glucose 109 mg/dl (70-99) H 10/12/24 05:40
Calcium 8.8 mg/dl (8.4-10.2) 10/12/24 05:40
Phosphorus 3.7 mg/dl (2.5-4.5) 10/12/24 05:40
Patient Allergies
levofloxacin Allergy (Verified 10/10/24 21:26)
Unknown
memantine Allergy (Verified 10/10/24 21:26)
confusion
Medications
-
Active Medications
Generic Name Dose Route Start Last Admin
Trade Name Freq PRN Reason Stop Dose Admin
Acetaminophen 650 mg 10/10/24 22:38
Acetaminophen 650 Mg Rectal Suppository RECTAL 11/07/24 22:37
Q4HPRN PRN
mild pain/BYERS/temp> 100.4F
Albuterol 2 puff 10/11/24 14:00
Albuterol Hfa [90 Mcg/Dose] Inhaler INH
On Hold: 10/11/24 13:58 R Q4HPRN PRN
sob/wheezing
Protocol
Bisacodyl 10 mg 10/10/24 22:38
Bisacodyl 10 Mg Rectal Suppository RECTAL 11/07/24 22:37
[id number] PRN
constipation
Budesonide/Formoterol Fumarate 2 puff 10/11/24 08:00 10/12/24 18:24
Symbicort Inhaler 160/4.5 INH 11/08/24 07:59 2 puff
R BID CHARITO Administration
Protocol
Carbidopa/Levodopa 1 tablet 10/10/24 22:38 10/12/24 18:03
Carbidopa (25 Mg) Levodopa (100 Mg) Extended Release Tablet PO 11/07/24 22:37 1 tablet
TID CHARITO Administration
Cetirizine HCl 10 mg 10/11/24 08:00 10/12/24 09:58
Cetirizine Hcl 10 Mg Tablet PO 11/08/24 07:59 10 mg
DAILY CHARITO Administration
Duloxetine HCl 20 mg 10/11/24 08:00 10/12/24 09:35
Duloxetine Delayed Release 20 Mg Capsule PO 11/08/24 07:59 20 mg
DAILY CHARITO Administration
Enoxaparin Sodium 40 mg 10/11/24 18:00 10/12/24 18:03
Enoxaparin Sodium 40 Mg/0.4 Ml Syringe SC 11/08/24 17:59 40 mg
QPM CHARITO Administration
Finasteride 5 mg 10/11/24 08:00 10/12/24 09:59
Finasteride 5 Mg Tablet PO 11/08/24 07:59 5 mg
DAILY CHARITO Administration
Fluticasone Propionate 1 puff 10/11/24 08:00 10/11/24 07:59
Fluticasone 110mcg Inhaler INH 11/08/24 07:59 Not Given
On Hold: 10/11/24 11:20 R BID CHARITO
Dextrose/Lactated Ringer's 1,000 mls @ 80 mls/hr 10/10/24 22:00 10/12/24 10:10
D5lr IV 1,000 mls
.[id number] CHARITO Administration
Pantoprazole Sodium 40 mg 10/11/24 08:00 10/12/24 09:59
Pantoprazole 40 Mg Delayed Release Tablet PO 11/08/24 07:59 40 mg
DAILY CHARITO Administration
Polyethylene Glycol 17 grams 10/10/24 22:38
Polyethylene Glycol Powder 17 Grams Packet PO 11/07/24 22:37
DAILYPRN PRN
constipation
Senna/Docusate Sodium 1 tablet 10/10/24 22:38
Docusate W/Senna (Angela-Colace) Tablet PO 11/07/24 22:37
BIDPRN PRN
constipation
Sodium Chloride 0 flush 10/10/24 23:00
Sodium Chloride 0.9% (Flush) Syringe IV 11/07/24 22:59
PER PROTOCOL CHARITO
Home Medications
�Medication �Instructions �Recorded
azelastine 137 mcg (0.1 %) nasal 1 spray intranasal BID 09/09/24
spray
budesonide-formoterol HFA 160 2 puff inhalation R BID 09/09/24
mcg-4.5 mcg/actuation aerosol
inhaler (Breyna)
carbidopa ER 25 mg-levodopa 100 mg 1 tab PO TID 09/09/24
tablet,extended release
donepezil 10 mg tablet 10 mg PO DAILY 09/09/24
finasteride 5 mg tablet 5 mg PO DAILY 09/09/24
omeprazole 20 mg capsule,delayed 20 mg PO DAILY 09/09/24
release
albuterol sulfate 90 mcg/actuation 2 puff inhalation QID 10/10/24
aerosol inhaler
cetirizine 10 mg tablet 10 mg PO DAILY 10/10/24
ciclesonide 80 mcg/actuation 2 puff inhalation BID 10/10/24
aerosol inhaler (Alvesco)
duloxetine 20 mg capsule,delayed 20 mg PO DAILY 10/10/24
release
triamcinolone acetonide 55 mcg 1 spray intranasal DAILY 10/10/24
nasal spray aerosol (Nasacort
Allergy)
[2024-10-12] MEDS: SINEMET CR 25-100 (EXTENDED RELEASE) PO (22:02)
[2024-10-12 23:36] VITALS: BP 148/66
[2024-10-13] MEDS: D5LR IV ×2 (01:14)
[2024-10-13] MEDS: D5LR 1000 IV ×2 (01:15→11:41)
[2024-10-13 03:13] VITALS: BP 140/62
[2024-10-13 07:00] VITALS: BP 149/66
[2024-10-13] MEDS: SYMBICORT 160/4.5 MCG INHALER 2 PUFF INH (07:22)
[2024-10-13 08:54] LABS: Hematocrit 38.3 % (39.0-52.0); Hemoglobin 12.9 g/dL (13.0-18.0); Mean Corp Hgb Conc. 33.7 g/dL (33.0-37.0); Mean Corpuscular Volume 91.6 fL (80.0-94.0); Platelet Count 187 10^3/uL (130-400); Red Cell Dist. Width 12.9 % (11.5-14.5)
[2024-10-13] MEDS: CYMBALTA DELAYED RELEASE 20 MG PO (09:00)
[2024-10-13] MEDS: PROSCAR 5 MG PO (09:00)
[2024-10-13] MEDS: SINEMET CR 25-100 (EXTENDED RELEASE) 1 TABLET PO ×3 (09:00→21:06)
[2024-10-13] MEDS: PROTONIX 40 MG PO (09:00)
[2024-10-13] MEDS: ZYRTEC 10 MG PO (09:00)
--- NOTE | 2024-10-13 09:12 | W.PN.HOSP.TC ---
Today's Communication/Plan
-
see a/p
Assessment / Plan
Assessment / Plan
Physical Exam
General: no acute distress, appears comfortable at this time.
HEENT: NormoCephalic, Moist mucous membranes and Atraumatic Hard of hearing
Respiratory: Clear
Cardiac: S1/S2 and Regular Rhythm; No Murmur or Rub
GI: Soft, Non Tender, Non Distended and Normal Bowel Sounds; No Organomegaly
Musculoskeletal: No Clubbing, No Cyanosis and No Edema
Skin: No Rash
Neuro: Awake Alert Conversant Confused
Psych: Calm
83M with history Lewy Body Dementia p/w due to concerns AMS progressive weakness ambulatory dysfunction past few days.
# Ambulatory dysfunction/generalized weakness/encephalopathy likely progression Lewy Body Dementia
- COVID-negative
- UA negative
- CT head with report No CT evidence for acute intracranial hemorrhage or transcortical infarct.
2. Moderate bilateral temporal lobe volume loss consistent with a chronic neurodegenerative disease (suggestive ALZHEIMER'S DEMENTIA).
3. SEVERE WHITE MATTER LEUKOARAIOSIS in the frontal lobes and moderate white matter leukoaraiosis in the parietal lobes.
4. Severe bilateral frontal sinusitis.
5. Severe hyperostosis of the paiz of the maxillary and sphenoid sinuses consistent with chronic sinusitis.
6. Moderate bilateral hyperostosis frontalis interna.
-chest x ray with No radiographic evidence for pneumonia or acute pulmonary edema. Mild to moderate elevation of the right hemidiaphragm. Chronic granulomatous disease infection in the left lung (discussed with Pulm, no further work up/treatment
required inpt, possible benefit outpt follow up).
-PT/OT consult appreciated SNF rehab
-CM consult appreciated
- Aricept held due to bradycardia
- Carbidopa levodopa continue
- Duloxetine continued
-PT/OT appreciated SNF rehab
-speech eval appreciated pureed diet advanced to soft bite size
-cont IVF support pending improvement in oral intake
-Neuro eval appreciated likely progression Lewy Body Dementia
# Bradycardia possibly from aricept
- EKG with sinus bradycardia
- Heart rate in the 40s to 50s
- Continue to monitor patient in telemetry
# History reactive airway disease
- stable respiratory status on room air
- cont symbicort, prn albuterol
# BPH
- Finasteride continued
# GERD
- PPI continued
# DVT prophylaxis
- Lovenox
PT/OT appreciated SNF rehab
# CODE STATUS
- DNR as per patient's AYLA Acevedo
Discussed with patient and patient's Kristina
I spent a total of 40 minutes with the patient or on the floor. More than 50% of this time involved counseling and coordination of care.
Anticipated Discharge: 24 - 48 hours
Subjective/Interval History
-
Date of Service: October 13, 2024
No acute distress, appears comfortable at this time. Pleasantly confused. Kristina present during evaluation.
Objective Data
-
Labs:
Laboratory Results
10/13/24
08:38
WBC 7.9
Hgb 12.9 L
Hct 38.3 L
Plt Count 187
Sodium Pending
Potassium Pending
Chloride Pending
Carbon Dioxide Pending
BUN Pending
Creatinine Pending
Glucose Pending
Calcium Pending
Vital Signs:
Vital Signs
Temp Pulse Resp BP Pulse Ox
97.6 F 50 16 149/66 95
10/13/24 07:00 10/13/24 07:23 10/13/24 07:23 10/13/24 07:00 10/13/24 07:23
I&O
10/12/24 10/13/24 10/14/24
06:59 06:59 06:59
Intake Total 820 / 820
Balance 820 / 820
[2024-10-13 09:19] LABS: Blood Urea Nitrogen 20 mg/dl (9-20); Calcium 8.4 mg/dl (8.4-10.2); Carbon Dioxide 31 mmol/L (22-30); Chloride 104 mmol/L (98-107); Estimated Creatinine Clearance 83 ml/min; Glucose 106 mg/dl (70-99); Magnesium 1.8 mg/dl (1.6-2.3); Potassium 3.7 mmol/L (3.5-5.1); Sodium 137 mmol/L (135-145); eGFR > 60.00
[2024-10-13 11:00] VITALS: BP 162/65
--- NOTE | 2024-10-13 14:05 | CM ---
CM reviewed chart, patient seen bedside with , Kristina. reports she can no longer care for patient, interested in speaking with Hospice, TT sent to liaison with request. unsure if patient would be able to participate in therapy and aware
she may need to private pay for room/board if going to facility with Hospice. reports there are children involved but she is POA.
CM received call from Ann Christina at [facility],, ([phone]) reports patient was scheduled to move into [facility] Care, requesting fax to [phone], would like to come to Hospital to assess patient if [facility] able to accept patient.
Per Ann, patient can come to facility on [facility]ospice [facility] or receive therapy depending on family wishes. CM will continue to follow for all discharge planning needs.
Plan; Hospice eval, plan TBD
[2024-10-13 15:00] VITALS: BP 137/57
--- NOTE | 2024-10-13 15:17 | HOSPNOTE ---
Spoke with spouse about hospice and the philosophy and the spouse is in agreement. The plan would be talk with the adult children and discuss hospice. The spouse has referrals sent [facility] in [place], [facility] and the [facility]. Information
about hospice was given and the spouse is in agreement just needs to find the right place. I will continue to follow. Patient is a DNR.
[2024-10-13] MEDS: LOVENOX 40 MG SC (15:41)
--- NOTE | 2024-10-13 16:06 | W.PN.UPDATE ---
Update Note
Progress Note Update
Confirmed with patient's AYLA Acevedo, patient's desired code status is DNR. Code status updated accordingly.
[2024-10-13] MEDS: SYMBICORT 160/4.5 MCG INHALER INH (19:38)
[2024-10-13 23:35] VITALS: BP 143/59
--- NOTE | 2024-10-14 02:23 | DOWNTIME ---
There was a [employer] Downtime on 10/14/2024 from 0100 to 10/14/2024 at 0220. Downtime documentation of patient's care, including medication administrations, has been reconciled in the electronic record per guidelines. Refer to the
patient's paper chart under the miscellaneous tab to see printed paper medication records and downtime forms.
[2024-10-14] MEDS: D5LR 1000 IV ×2 (04:01→14:03)
[2024-10-14 07:45] VITALS: BP 128/71; BP 169/72; PULSE 54; PULSE 688
[2024-10-14] MEDS: SYMBICORT 160/4.5 MCG INHALER INH ×2 (08:00→19:40)
[2024-10-14] MEDS: ZYRTEC 10 MG PO (08:52)
[2024-10-14] MEDS: PROTONIX 40 MG PO (08:52)
[2024-10-14] MEDS: PROSCAR 5 MG PO (08:52)
[2024-10-14] MEDS: CYMBALTA DELAYED RELEASE 20 MG PO (08:52)
[2024-10-14] MEDS: SINEMET CR 25-100 (EXTENDED RELEASE) 1 TABLET PO ×3 (08:52→22:09)
--- NOTE | 2024-10-14 08:53 | CM ---
Addendum entered by Beverley Oquendo 10/14/24 14:24:
Patient seen bedside with . Hugh from [facility] came to evaluate patient bedside, able to accept patient. would like to speak with the [facility] as they are coming to evaluate patient and make decision.
Original Note:
CM reviewed chart, spoke with Ann from [facility]- coming to assess patient today. [facility] also coming to assess patient. Referral also sent to Anahy Bahena at [facility]. Per Hospice, agreeable to hospice, looking for
facility to accept as cannot take patient home with hospice. CM will follow up with /facilities regarding accepting patient.
Plan; in agreement with Hospice, [facility] and [facility] to assess patient today
--- NOTE | 2024-10-14 09:41 | W.PN.HOSP.TC ---
Today's Communication/Plan
-
medically stable for discharge pending placement
Assessment / Plan
Assessment / Plan
Physical Exam
General: no acute distress, appears comfortable at this time.
HEENT: NormoCephalic, Moist mucous membranes and Atraumatic Hard of hearing
Respiratory: Clear
Cardiac: S1/S2 and Regular Rhythm; No Murmur or Rub
GI: Soft, Non Tender, Non Distended and Normal Bowel Sounds; No Organomegaly
Musculoskeletal: No Clubbing, No Cyanosis and No Edema
Skin: No Rash
Neuro: Awake Alert Conversant Confused
Psych: Calm
83M with history Lewy Body Dementia p/w due to concerns AMS progressive weakness ambulatory dysfunction past few days.
# Ambulatory dysfunction/generalized weakness/encephalopathy likely progression Lewy Body Dementia
- COVID-negative
- UA negative
- CT head with report No CT evidence for acute intracranial hemorrhage or transcortical infarct.
2. Moderate bilateral temporal lobe volume loss consistent with a chronic neurodegenerative disease (suggestive ALZHEIMER'S DEMENTIA).
3. SEVERE WHITE MATTER LEUKOARAIOSIS in the frontal lobes and moderate white matter leukoaraiosis in the parietal lobes.
4. Severe bilateral frontal sinusitis.
5. Severe hyperostosis of the paiz of the maxillary and sphenoid sinuses consistent with chronic sinusitis.
6. Moderate bilateral hyperostosis frontalis interna.
-chest x ray with No radiographic evidence for pneumonia or acute pulmonary edema. Mild to moderate elevation of the right hemidiaphragm. Chronic granulomatous disease infection in the left lung (discussed with Pulm, no further work up/treatment
required inpt, possible benefit outpt follow up).
-PT/OT consult appreciated SNF rehab
-CM consult appreciated
- Aricept held due to bradycardia
- Carbidopa levodopa continue
- Duloxetine continued
-PT/OT appreciated SNF rehab
-speech eval appreciated pureed diet advanced to soft bite size
-cont IVF support pending improvement in oral intake
-Neuro eval appreciated likely progression Lewy Body Dementia
# Bradycardia possibly from aricept
- EKG with sinus bradycardia
- Heart rate in the 40s to 50s
- consistently stable during stay, autobody technician since discontinued
# History reactive airway disease
- stable respiratory status on room air
- cont symbicort, prn albuterol
# BPH
- Finasteride continued
# GERD
- PPI continued
# DVT prophylaxis
- Lovenox
PT/OT appreciated SNF rehab
# CODE STATUS
- DNR as per patient's AYLA Acevedo
Medically stable for discharge pending placement
Discussed with patient and patient's Kristina
I spent a total of 40 minutes with the patient or on the floor. More than 50% of this time involved counseling and coordination of care.
Anticipated Discharge: Within 24 hours
Subjective/Interval History
-
Date of Service: October 14, 2024
No acute distress, resting comfortably in bed, pleasantly confused.
Objective Data
-
Vital Signs:
Vital Signs
Temp Pulse Resp BP Pulse Ox
97.7 F 54 24 169/72 97
10/14/24 07:45 10/14/24 07:45 10/14/24 07:45 10/14/24 07:45 10/14/24 07:45
I&O
10/13/24 10/14/24 10/15/24
06:59 06:59 06:59
Intake Total 820 / 820 60 / 60
Balance 820 / 820 60 / 60
[2024-10-14 15:44] VITALS: BP 156/75
[2024-10-14] MEDS: LOVENOX 40 MG SC (17:13)
[2024-10-14 23:21] VITALS: BP 120/62; BP 122/52; PULSE 61; PULSE 69
[2024-10-15] MEDS: MIRALAX 17 GRAMS PO (03:09)
[2024-10-15] MEDS: SENOKOT-S 1 TABLET PO (03:09)
[2024-10-15] MEDS: D5LR IV (04:43)
--- NOTE | 2024-10-15 07:24 | W.PN.HOSP.TC ---
Today's Communication/Plan
-
Medically stable for discharge pending placement
Assessment / Plan
Assessment / Plan
Physical Exam
General: no acute distress, appears comfortable at this time.
HEENT: NormoCephalic, Moist mucous membranes and Atraumatic Hard of hearing
Respiratory: Clear
Cardiac: S1/S2 and Regular Rhythm; No Murmur or Rub
GI: Soft, Non Tender, Non Distended and Normal Bowel Sounds; No Organomegaly
Musculoskeletal: No Clubbing, No Cyanosis and No Edema
Skin: No Rash
Neuro: Awake Alert Conversant Confused
Psych: Calm
83M with history Lewy Body Dementia p/w due to concerns AMS progressive weakness ambulatory dysfunction past few days.
# Ambulatory dysfunction/generalized weakness/encephalopathy likely progression Lewy Body Dementia
- COVID-negative
- UA negative
- CT head with report No CT evidence for acute intracranial hemorrhage or transcortical infarct.
2. Moderate bilateral temporal lobe volume loss consistent with a chronic neurodegenerative disease (suggestive ALZHEIMER'S DEMENTIA).
3. SEVERE WHITE MATTER LEUKOARAIOSIS in the frontal lobes and moderate white matter leukoaraiosis in the parietal lobes.
4. Severe bilateral frontal sinusitis.
5. Severe hyperostosis of the paiz of the maxillary and sphenoid sinuses consistent with chronic sinusitis.
6. Moderate bilateral hyperostosis frontalis interna.
-chest x ray with No radiographic evidence for pneumonia or acute pulmonary edema. Mild to moderate elevation of the right hemidiaphragm. Chronic granulomatous disease infection in the left lung (discussed with Pulm, no further work up/treatment
required inpt, possible benefit outpt follow up).
-PT/OT consult appreciated SNF rehab
-CM consult appreciated
- Aricept held due to bradycardia
- Carbidopa levodopa continue
- Duloxetine continued
-PT/OT appreciated SNF rehab
-speech eval appreciated pureed diet advanced to soft bite size
-cont IVF support pending improvement in oral intake
-Neuro eval appreciated likely progression Lewy Body Dementia
-patient hospice appropriate end stage disease Lewy Body Dementia 6 mo prognosis if not less
# Bradycardia possibly from aricept
- EKG with sinus bradycardia
- Heart rate in the 40s to 50s
- consistently stable during stay, equipment monitor phototypesetting since discontinued
# History reactive airway disease
- stable respiratory status on room air
- cont symbicort, prn albuterol
# BPH
- Finasteride continued
# GERD
- PPI continued
# DVT prophylaxis
- Lovenox
PT/OT appreciated SNF rehab
# CODE STATUS
- DNR as per patient's AYLA Acevedo
Medically stable for discharge pending placement
Discussed with patient and patient's Kristina
I spent a total of 35 minutes with the patient or on the floor. More than 50% of this time involved counseling and coordination of care.
Anticipated Discharge: Within 24 hours
Subjective/Interval History
-
Date of Service: October 15, 2024
no acute distress. appears comfortable. pleasantly confused.
Objective Data
-
Vital Signs:
Vital Signs
Temp Pulse Resp BP Pulse Ox
97.9 F 65 18 156/75 97
10/14/24 23:22 10/14/24 15:44 10/14/24 23:22 10/14/24 15:44 10/14/24 23:22
I&O
10/14/24 10/15/24 10/16/24
06:59 06:59 06:59
Intake Total 0 / 1660
Balance 166 / 1660
[2024-10-15 07:47] VITALS: BP 152/69; BP 156/73; PULSE 59; PULSE 62
[2024-10-15] MEDS: SYMBICORT 160/4.5 MCG INHALER INH ×2 (08:05→19:13)
[2024-10-15] MEDS: CYMBALTA DELAYED RELEASE 20 MG PO (09:59)
[2024-10-15] MEDS: ZYRTEC 10 MG PO (09:59)
[2024-10-15] MEDS: PROTONIX 40 MG PO (09:59)
[2024-10-15] MEDS: SINEMET CR 25-100 (EXTENDED RELEASE) 1 TABLET PO ×3 (09:59→21:09)
[2024-10-15] MEDS: PROSCAR 5 MG PO (09:59)
--- NOTE | 2024-10-15 12:54 | CM ---
CM reviewed chart, spoke with Hugh from [facility], able to accept patient tomorrow, aware, would like Hospice at facility. Per [facility], work with [facility], [facility]. CM spoke with Rebeka from [facility]
Hospice, can admit patient on hospice services at [facility], spoke with patients with Kristina and waiting for consents to be signed. [facility] DME and Jb Fletcher on chart for Hospitalist signature, will fax. CM will continue to follow for all
discharge planning needs.
Please Fax d.c summary to [facility]: [phone]
Plan; discharge to [facility] tomorrow with [facility], ambulance transport required.
[2024-10-15 15:45] VITALS: BP 141/74
[2024-10-15] MEDS: LOVENOX 40 MG SC (16:48)
[2024-10-15 23:45] VITALS: BP 127/56
--- NOTE | 2024-10-16 06:49 | W.PN.HOSP.TC ---
Addendum entered and electronically signed by Nimesh Mendieta MD 10/17/24 05:04:
stage 2 sacrum pressure injury, POA
Original Note:
Today's Communication/Plan
-
discharge
Assessment / Plan
Assessment / Plan
Physical Exam
General: no acute distress, appears comfortable at this time.
HEENT: NormoCephalic, Moist mucous membranes and Atraumatic Hard of hearing
Respiratory: Clear
Cardiac: S1/S2 and Regular Rhythm; No Murmur or Rub
GI: Soft, Non Tender, Non Distended and Normal Bowel Sounds; No Organomegaly
Musculoskeletal: No Clubbing, No Cyanosis and No Edema
Skin: No Rash
Neuro: Awake Alert Confused
Psych: Calm
83M with history Lewy Body Dementia p/w due to concerns AMS progressive weakness ambulatory dysfunction past few days.
# Ambulatory dysfunction/generalized weakness/encephalopathy likely progression Lewy Body Dementia
#Possible Acute Metabolic Encephalopathy
- COVID-negative
- UA negative
- CT head with report No CT evidence for acute intracranial hemorrhage or transcortical infarct.
2. Moderate bilateral temporal lobe volume loss consistent with a chronic neurodegenerative disease (suggestive ALZHEIMER'S DEMENTIA).
3. SEVERE WHITE MATTER LEUKOARAIOSIS in the frontal lobes and moderate white matter leukoaraiosis in the parietal lobes.
4. Severe bilateral frontal sinusitis.
5. Severe hyperostosis of the paiz of the maxillary and sphenoid sinuses consistent with chronic sinusitis.
6. Moderate bilateral hyperostosis frontalis interna.
-chest x ray with No radiographic evidence for pneumonia or acute pulmonary edema. Mild to moderate elevation of the right hemidiaphragm. Chronic granulomatous disease infection in the left lung (discussed with Pulm, no further work up/treatment
required inpt, possible benefit outpt follow up).
-PT/OT consult appreciated SNF rehab
-CM consult appreciated
- Aricept discontinued due bradycardia
- Carbidopa levodopa continue
- Duloxetine continued
-PT/OT appreciated SNF rehab
-speech eval appreciated pureed diet advanced to soft bite size
-IVF support
-Neuro eval appreciated likely progression Lewy Body Dementia
-patient hospice appropriate end stage disease Lewy Body Dementia 6 mo prognosis if not less
# Bradycardia
- EKG with sinus bradycardia
- Heart rate in the 40s to 50s, otherwise hemodynamically stable
- consistently stable during stay, front desk monitor since discontinued
# History reactive airway disease
- stable respiratory status on room air
- cont symbicort, prn albuterol
# BPH
- Finasteride continued
# GERD
- PPI continued
# DVT prophylaxis
- Lovenox
PT/OT appreciated SNF rehab
# CODE STATUS
- DNR as per patient's AYLA Acevedo
Medically stable for discharge SNF w/ hospice and outpatient follow up recommendations.
Total Time Preparing Discharge __40 minutes including examination of the patient, summary of the hospital stay, instructions for continuing care to all relevant caregivers; and preparation of discharge records, prescriptions, and referral
forms if necessary.
Anticipated Discharge: Today
Subjective/Interval History
-
Date of Service: October 16, 2024
No acute distress sitting up comfortably in bed. Awake alert confused but calm.
Objective Data
-
Vital Signs:
Vital Signs
Temp Pulse Resp BP Pulse Ox
97.6 F 62 18 127/56 96
10/15/24 23:45 10/15/24 23:45 10/15/24 23:45 10/15/24 23:45 10/15/24 23:45
I&O
10/14/24 10/15/24 10/16/24
06:59 06:59 06:59
Intake Total 60 / 60 1660 / 1660
Balance 60 / 60 1660 / 1660
[2024-10-16 07:00] VITALS: BP 107/69
[2024-10-16] MEDS: SYMBICORT 160/4.5 MCG INHALER INH (08:03)
--- NOTE | 2024-10-16 08:50 | W.DCSUMMARY ---
Discharge Summary
Discharge Data
Date of Admission: 10/12/24
Date of Discharge: 10/16/24
-
Pending Results: No
Hospital Course
83M with history Lewy Body Dementia p/w due to concerns AMS progressive weakness ambulatory dysfunction past few days. Ambulatory dysfunction/generalized weakness/encephalopathy likely progression Lewy Body Dementia, Possible Acute Metabolic
Encephalopathy, COVID-negative, UA negative. CT head noted:
1. No CT evidence for acute intracranial hemorrhage or transcortical infarct.
2. Moderate bilateral temporal lobe volume loss consistent with a chronic neurodegenerative disease (suggestive ALZHEIMER'S DEMENTIA).
3. SEVERE WHITE MATTER LEUKOARAIOSIS in the frontal lobes and moderate white matter leukoaraiosis in the parietal lobes.
4. Severe bilateral frontal sinusitis.
5. Severe hyperostosis of the paiz of the maxillary and sphenoid sinuses consistent with chronic sinusitis.
6. Moderate bilateral hyperostosis frontalis interna.
Chest x ray with No radiographic evidence for pneumonia or acute pulmonary edema. Mild to moderate elevation of the right hemidiaphragm. Chronic granulomatous disease infection in the left lung (discussed with Pulm, no further work up/treatment
required inpt, possible benefit outpt follow up). PT/OT consult appreciated SNF rehab. CM consult appreciated. Aricept discontinued due bradycardia. Carbidopa levodopa continue. Duloxetine continued. PT/OT appreciated SNF rehab. Speech eval
appreciated pureed diet advanced to soft bite size. Neuro eval appreciated likely progression Lewy Body Dementia. Patient hospice appropriate end stage disease Lewy Body Dementia 6 mo prognosis if not less. Medically stable, patient was
discharged to SNF Hospice with outpatient follow up recommendations.
Discharge Plan
-
Patient Disposition: Home with Hospice
Discharge Diagnosis/Procedures: Lewy Body Dementia
Bradycardia
reactive airway disease
Chronic Granulomatous Disease Infection Left Lung
BPH
GERD
Condition: Fair
Diet: Other diet
Additional Diets: soft bite size diet
Activity: With assistance, As tolerated and With Walker
Driving Restrictions: No driving
Bathing Restrictions: None
Others Tests: If in line with goals of care, repeat Chest X-ray with primary care provider or Pulmonology in 1 month of discharge.
Other Services: PT, OT and Hospice
Activity Restrictions/Additional Instructions:
Follow up with Hospice following discharge. Follow up with primary care provider in 1 week of discharge and Pulmonology in 2-4 weeks of discharge.
Aricept discontinued due to Bradycardia.
Follow up with Hospice, Primary care provider, and/or other healthcare provider involved in your care for refills and/or further adjustment to your medication regimen as necessary.
Referrals:
Jp Islas MD [Active, Pulmonary Medicine] - in two to four weeks
UNKNOWN - PT NOT,INTERVIEWE [Family Provider]
Prescriptions:
Continued
carbidopa-levodopa 25-100 mg tablet extended release
1 tab PO TID
omeprazole 20 mg capsule,delayed release(DR/EC)
20 mg PO DAILY
azelastine 137 mcg (0.1 %) [place],Non-Aerosol
1 spray INTRANASAL BID
finasteride 5 mg Tablet
5 mg PO DAILY
budesonide-formoterol [Breyna] 160-4.5 mcg/actuation Hfa Aerosol Inhaler
2 puff INHALATION R BID
cetirizine 10 mg Tablet
10 mg PO DAILY
triamcinolone acetonide [Nasacort Allergy] 55 mcg Aerosol,[place]
1 spray INTRANASAL DAILY
albuterol sulfate 90 mcg/actuation Hfa Aerosol Inhaler
2 puff INHALATION QID
duloxetine 20 mg Capsule,Delayed Release(Dr/Ec)
20 mg PO DAILY
Alvesco 80 mcg/actuation Hfa Aerosol Inhaler
2 puff INHALATION BID
Discontinued
donepezil 10 mg Tablet
10 mg PO DAILY
Discharge Orders:
Discharge Patient (As Directed); Ordered 10/16/24
Ordered By: Nimesh Mendieta
Discharge Date and Time
Discharge Date/Time: 10/16/24 16:13
Print Language: SLOVAK
[2024-10-16] MEDS: ZYRTEC 10 MG PO (09:10)
[2024-10-16] MEDS: PROSCAR 5 MG PO (09:11)
[2024-10-16] MEDS: PROTONIX 40 MG PO (09:11)
[2024-10-16] MEDS: CYMBALTA DELAYED RELEASE 20 MG PO (09:11)
[2024-10-16] MEDS: SINEMET CR 25-100 (EXTENDED RELEASE) 1 TABLET PO (09:11)
--- NOTE | 2024-10-16 10:50 | CM ---
CM reviewed chart, patient for discharge today to [facility], [facility] to sign patient on upon admission. OOH DNR form signed on chart. Call to patients , Kristina, reviewed IMM, placed on chart. Patient scheduled for 3:30 p.m. ambulance
transport. DME/Med Form signed anf faxed to [facility]. CM will continue to follow for all discharge planning needs.
Plan; [facility] with [facility], 3:30 p.m. ambulance transport
Please Fax d.c summary to [facility]: [phone]
[facility]
Report: [phone]
--- NOTE | 2024-10-16 13:56 | PN.CDI ---
CDI
- -
CDI:
Physician Documentation Request
Admit Date: 10/12/24 12:32
Dear Doctor Gayatri,
Please review the following and provide your response in the progress notes.
Clinical Indicators:
Nurses Notes:
Selected Entries
10/12/24
01:52
Pressure injury stage [Present on admission Sacrum] Stage 2
Physician documentation of the type and location of wounds is required for compliant documentation. Based on the above clinical findings and your assessment, please provide the following in your progress note:
Yes, stage 2 sacrum pressure injury, POA
No, Stage 2 sacrum pressure injury
Other(please specify)
1. Location of the ulcer/wound, including laterality.
2. Type (etiology) of ulcer/wound:
- Diabetic ulcer
- Arterial (ischemic) ulcer
- Traumatic wound
- Venous stasis ulcer
- Pressure (decubitus) ulcer
- Non-healing surgical wound
- Other
3. For a pressure ulcer, please also include the stage* of the ulcer:
- Stage 1 - Skin intact, non-blanchable redness
- Stage 2 - Partial thickness loss of dermis, includes intact or open blister
- Stage 3 - Full thickness tissue not including bone, tendon or muscle
- Stage 4 - Full thickness tissue loss, including exposed bone, tendon or muscle
- Unstageable - Full thickness loss in which the base of the ulcer is covered by slough (yellow, miller, mcnally, green or brown) and/or eschar (miller, brown or black) in the wound bed.
- Unable to determine
Use of terms such as suspected, likely, concern for, or probable (associated with a specific diagnosis that is being evaluated, monitored, or treated as if it exists) are acceptable and can be coded in the inpatient setting, when documented at the
time of discharge.
Thank you,
Mary Prajapati RN BSN CCDS
CDI Specialist
Please contact via tiger text
Please use your independent medical judgment in providing your response.
*Source: National Pressure Ulcer Advisory Panel (NPUAP)
== END 2024-10-16 16:13 | disposition hospice, home (50) | DRG 56 ==
LOC: 4 WEST ACU 12:32
PROVIDERS: Emergency Medicine; Physician Assistant; ADMITTING PHYSICIAN Internal Medicine; ATTENDING PHYSICIAN Internal Medicine; CONSULT PHYSICIAN Psychiatry & Neurology Clinical Neurophysiology; EMERGENCY PHYSICIAN Emergency Medicine
DX: G31.83 Neurocognitive disorder with Lewy bodies (principal); G93.41 Metabolic encephalopathy; F02.818 Dementia in other diseases classified elsewhere, unspecified severity, with other behavioral disturbance; I67.81 Acute cerebrovascular insufficiency; G30.9 Alzheimer's disease, unspecified; G20.A1 Parkinson's disease without dyskinesia, without mention of fluctuations; J32.1 Chronic frontal sinusitis; D71 Functional disorders of polymorphonuclear neutrophils; N40.0 Benign prostatic hyperplasia without lower urinary tract symptoms; K21.9 Gastro-esophageal reflux disease without esophagitis; M85.80 Other specified disorders of bone density and structure, unspecified site; R00.1 Bradycardia, unspecified; J45.909 Unspecified asthma, uncomplicated; Z66 Do not resuscitate; L89.152 Pressure ulcer of sacral region, stage 2; Z11.52 Encounter for screening for COVID-19; Z79.899 Other long term (current) drug therapy
CPT/HCPCS: 51701; 70450; 71046; 80048; 80053; 81003; 81015; 83605; 83735; 84100; 85025; 85027; 87070; 87502; 87811; 92526; 92610; 93005; 94640; 96360; 97163; 97167; 99285